=== PATIENT | male | born 1995 | race Caucasian/White ===

== ENCOUNTER 2024-02-07 20:11 | Emergency (ER) | payer SELFPAY ==
[~2024-02-07] VITALS: Ht 180.3 cm; Wt 111.1 kg
[2024-02-07 20:22] VITALS: BP 129/85; PULSE 82; RESP 16; TEMP 98.1; O2SAT 99
[2024-02-07] MEDS: LIDOCAINE MPF 2% 100 MG/5 ML VIAL INJ ONE (20:40)
[2024-02-07] MEDS ORDERED: LIDOCAINE MPF 1% 5 ML ONE (20:55)
[2024-02-07] MEDS: BACITRACIN OINT 500 UNITS/GM PKT TP ONE (21:25)
[2024-02-07] MEDS ORDERED: CEPH-588 PO (21:46)
[2024-02-07 22:02] VITALS: O2SAT 99
== END 2024-02-07 22:01 | disposition home or self-care (01) ==
LOC: MED 20:11
DX: S81.811A Laceration without foreign body, right lower leg, initial encounter (principal); R03.0 Elevated blood-pressure reading, without diagnosis of hypertension; Z79.2 Long term (current) use of antibiotics; V22.49XA Other motorcycle driver injured in collision with two- or three-wheeled motor vehicle in traffic accident, initial encounter; Y93.I9 Activity, other involving external motion; Y92.89 Other specified places as the place of occurrence of the external cause; Y99.8 Other external cause status
CPT/HCPCS: 12001; 73590; 90471; 90715; 99283; J2001